=== PATIENT | male | born 1950 | race Caucasian/White ===

== ENCOUNTER 2018-01-08 17:15 | Observation (INO) | payer OTHER ==
--- NOTE | 2018-01-08 17:39 | PDOC ---
Rapid Medical Evaluation Chief Complaint: Edema Time Seen by Provider: 01/08/18 17:36 Medical Evaluation: Allergies Allergy/AdvReac Type Severity Reaction Status Date / Time No Known Allergies Allergy Verified 04/26/11 10:06 01/08/18 17:37 CC: +DVT confirmed today via US HPI: Pt is a 67 M who has a +DVT confirmed by US. Pt has disk and report. Pt denies pleuritic pain, denies SOB. I have performed a brief in- person evaluation of this patient. Pertinent Physical Findings: Skin: Clear Lungs: Clear Heart: RRR Neuro: Alert Psych: Appropriate affect I have ordered: Basic labs ordered The patient will proceed to: Main ED Discharge Disposition - Diagnosis Deep vein thrombophlebitis of leg Qualifiers: Laterality: right Qualified Code(s): I80.201 - Phlebitis and thrombophlebitis of unspecified deep vessels of right lower extremity - Referrals - Patient Instructions - Post Discharge Activity
[2018-01-08 18:12] LABS: HEMOGLOBIN 14.5 GM/dL (11.7-16.9); MCH 30.6 pg (25.7-33.7); MCHC 33.6 g/dl (32.0-35.9); MEAN CELL VOLUME 91.1 fl (80-96); MEAN PLT VOLUME 6.9 fl (7.5-11.1); PLATELET COUNT 191 K/MM3 (134-434); RBC 4.72 M/mm3 (4.00-5.60); RDW 13.5 % (11.9-15.9); WHITE BLOOD COUNT 7.7 K/mm3 (4.0-10.0)
[2018-01-08 18:40] LABS: INR 0.9 (0.83-1.09); PROTHROMBIN TIME (PATIENT) 10.6 SEC (9.7-13.0)
[2018-01-08 18:44] LABS: ALBUMIN 3.9 g/dl (3.4-5.0); ALK PHOS 108 U/L (45-117); ANION GAP 6 MMOL/L (8-16); BILIRUBIN,TOTAL 0.7 mg/dL (0.2-1); BLOOD UREA NITROGEN 25 mg/dL (7-18); CHLORIDE 108 mmol/L (98-107); CO2 25 mmol/L (21-32); CREATININE 1.1 mg/dL (0.55-1.3); GLUCOSE,RANDOM 140 mg/dL (74-106); POTASSIUM 3.8 mmol/L (3.5-5.1); SGOT/AST 27 U/L (15-37); SGPT/ALT 36 U/L (13-61); SODIUM 138 mmol/L (136-145); TOT PROT 7.3 g/dl (6.4-8.2)
--- NOTE | 2018-01-08 19:01 | PDOC ---
History of Present Illness - General Chief Complaint: Edema Stated Complaint: PCP SENT/RT CALF PAIN Time Seen by Provider: 01/08/18 17:36 History Source: Patient Exam Limitations: No Limitations - History of Present Illness Initial Comments: 01/08/18 20:30 Pt is a 67yo m with PMH of HTN, HLD sent to ED by PCP for DVT. Pt had a DVT study done earlier today at [facility]. Results were occlusion of R femoral, popliteal, and tibial veins. R common femoral and greater saphenous are patent. He admits to R leg swelling for the past couple of days and slight calf tenderness. Pt went to [place] in September. He denies recent surgeries, trauma, history of clots, chest pain, shortness of breath, lightheadedness, dizziness, abdominal pain, numbness/tingling. No history of GI bleeds. He is taking a baby aspirin. PCP: Dago Meds: ASA, choleterol, blood pressure Allergies: ndka Social: denies Past History - Past Medical History Allergies/Adverse Reactions: Allergies Allergy/AdvReac Type Severity Reaction Status Date / Time No Known Allergies Allergy Verified 01/08/18 17:37 Home Medications: Ambulatory Orders Aspirin 81 mg PO DAILY 04/26/11 Hyzaar 100-25 Tablet PO DAILY 04/26/11 Simvastatin PO DAILY 04/26/11 Metoprolol Tartrate PO DAILY 04/29/11 Anemia: No Asthma: No Cancer: No Cardiac Disorders: No CVA: No COPD: No CHF: No Dementia: No Diabetes: No GI Disorders: No Disorders: No HTN: Yes Hypercholesterolemia: Yes Liver Disease: No Seizures: No Thyroid Disease: No - Surgical History Abdominal Surgery: No Appendectomy: No Cardiac Surgery: No Cholecystectomy: No Lung Surgery: No Neurologic Surgery: No Orthopedic Surgery: Yes (LEFT ANKLE SURGERY) - Immunization History Immunization Up to Date: Yes - Suicide/Smoking/Psychosocial Hx Smoking History: Never smoked Information on smoking cessation initiated: No Hx Alcohol Use: No Drug/Substance Use Hx: No Substance Use Type: Alcohol Hx Substance Use Treatment: No Review of Systems - Review of Systems Constitutional: No: Chills, Fever, Weakness HEENTM: No: Recent change in vision, Throat Pain Respiratory: No: Cough, Shortness of Breath, Wheezing, Hemoptysis Cardiac (ROS): No: Chest Pain, Lightheadedness, Palpitations, Syncope ABD/GI: No: Constipated, Diarrhea, Nausea, Rectal Bleeding, Vomiting, Abdominal cramping, Tarry Stools : No: Burning, Dysuria, Hematuria Musculoskeletal: No: Back Pain, Joint Pain, Muscle Pain, Neck Pain Integumentary: No: Bruising Neurological: No: Headache, Numbness, Tingling, Weakness Hematologic/Lymphatic: Yes: Blood Clots (today. no history of clots). No: Anemia, Bleeding Diathesis *Physical Exam - Vital Signs Last Vital Signs Temp Pulse Resp BP Pulse Ox 98.8 F 74 16 143/85 97 01/08/18 17:37 01/08/18 17:37 01/08/18 17:37 01/08/18 17:37 01/08/18 17:37 - Physical Exam Comments: 01/08/18 21:11 Pt sitting comfortably in chair General Appearance: Yes: Nourished, Appropriately Dressed. No: Apparent Distress HEENT: positive: EOMI, ABE, Pharynx Normal. negative: Pale Conjunctivae Neck: positive: Trachea midline, Supple. negative: Carotid bruit, Lymphadenopathy (R), Lymphadenopathy (L) Respiratory/Chest: positive: Lungs Clear, Normal Breath Sounds. negative: Crackles, Rhonchi, Stridor, Wheezing Cardiovascular: positive: Regular Rhythm, Regular Rate, S1, S2. negative: Edema , JVD, Murmur, Systolic Murmur Vascular Pulses: Carotid (R): 2+, Carotid (L): 2+, Dorsalis-Pedis (R): 2+, Doralis-Pedis (L): 2+ Gastrointestinal/Abdominal: positive: Normal Bowel Sounds, Soft. negative: Distended, Guarding, Rebound, Tenderness Musculoskeletal: negative: CVA Tenderness (R), CVA Tenderness (L) Extremity: positive: Normal Capillary Refill, Swelling (R calf edema. tender to palpation posteriorly. No bruising), Calf Tenderness (R calf tenderness). negative: Coldness, Cyanosis Integumentary: positive: Normal Color, Dry, Warm Neurologic: positive: computer aided design drafter II-XII NML intact, Fully Oriented, Alert, Normal Mood/ Affect, Normal Response, Motor Strength 5/5 Deep Tendon Reflexes: Ankle (L): 2+, Ankle (R): 2+, Knee (L): 2+, Knee (R): 2+ ED Treatment Course - LABORATORY CBC & Chemistry Diagram: 01/08/18 18:00 01/08/18 18:00 - ADDITIONAL ORDERS Additional order review: Laboratory Results 01/08/18 01/08/18 01/08/18 18:00 18:00 18:00 PT with INR 10.60 INR 0.90 PTT (Actin FS) 30.6 Sodium 138 Potassium 3.8 Chloride 108 H Carbon Dioxide 25 Anion Gap 6 L BUN 25 H Creatinine 1.1 Creat Clearance w eGFR > 60 Random Glucose 140 H Calcium 9.0 Total Bilirubin 0.7 AST 27 ALT 36 Alkaline Phosphatase 108 Total Protein 7.3 Albumin 3.9 01/08/18 18:00 RBC 4.72 MCV 91.1 MCHC 33.6 RDW 13.5 MPV 6.9 L Medical Decision Making - Medical Decision Making 01/08/18 19:00 67yo M with pmh of htn, hld sent to ED by PCP for further management of DVT. Vitals: wnl PE: R calf swelling, edema and calf tenderness. Rest of exam is benign. [facility] on 01/[address] Loza Occlusive thrombus disends the r femoral vv, poplitieal v and posterior tibial. Patent r common femoral, r greater saphenous and common femoral L common fem v demonstrates antegrade flow with respiratory variation Labs ordered by RME: cbc, cmp, pt/inr, aptt EKG added. Pt not complaining of chest pain, SOB, dizziness, lightheadedness. Pt is not tachycardic, not tachypneic, saturating well on RA and normotensive. Will defer CTA at this time. 01/08/18 20:39 EKG: nsr 1st degree AV block. No prior to compare it to. Microblogged hospitalist to see if pt is candidate for outpatient treatment. Pt sitting comfortably in chair and ambulatory. Not having any complaints. Due to protocol, pt's DVT is extensive. Will be given Lovenox sq in ED and be admitted to hospitalist for further management Pt admitted to Dr. Naidu 01/08/18 23:30 *DC/Admit/Observation/Transfer Diagnosis at time of Disposition: DVT (deep venous thrombosis) Qualifiers: DVT location: lower extremity Affected thrombotic vein of extremity: femoral Chronicity: acute Laterality: right Qualified Code(s): I82.411 - Acute embolism and thrombosis of right femoral vein - Discharge Dispostion Condition at time of disposition: Stable Decision to Admit order: Yes - Referrals - Patient Instructions - Post Discharge Activity
--- NOTE | 2018-01-08 20:48 | PDOC ---
Attending Attestation - Resident Resident Name: Luba Dickens - ED Attending Attestation I have performed the following: I have examined & evaluated the patient, The case was reviewed & discussed with the resident, I agree w/resident's findings & plan - HPI HPI: 01/08/18 20:47 67-year-old male with history of hypertension and high cholesterol and sent by PCP after he was diagnosed with a right lower extremity DVT on ultrasound performed today. Patient has noted swelling to the right leg over the last few days, no precipitating factors on history. No history of DVT, no cardiopulmonary complaints whatsoever. - Physicial Exam PE: 01/08/18 20:47 Vitals are within normal limits Positive right leg swelling with some discomfort to palpation 2+ distal pulses, no discoloration or cellulitis - Medical Decision Making 01/08/18 20:48 67-year-old male with unprompted right lower extremity DVT, no symptoms of PE. Exam is otherwise normal with normal vital signs. Labs are within normal limits, ultrasound results reviewed We'll determine eligibility for outpatient treatment, discuss with PCP, and disposition accordingly
[2018-01-08] MEDS ORDERED: ENOXAPARIN NA (PORCINE) 80 MG/0.8 ML DISP.SYRIN SQ ONE ×2 (20:57→21:16)
--- NOTE | 2018-01-08 22:06 | PN ---
Teaching Attending Note Name of Resident: Chapin Crabtree ATTENDING PHYSICIAN STATEMENT I saw and evaluated the patient. I reviewed the resident's note and discussed the case with the resident. I agree with the resident's findings and plan as documented. SUBJECTIVE: Patient is a 67 year old man with PMH of HTN, HLD sent to ER by PCP for DVT. He had a DVT study done earlier today at [facility]. Results were occlusion of R femoral, popliteal, and tibial veins. R common femoral and greater saphenous are patent. He admits to R leg swelling for the past couple of days and slight calf tenderness. He went to [place] in September. He denies recent surgeries, trauma, history of clots, chest pain, shortness of breath, lightheadedness, dizziness, abdominal pain, numbness/tingling. No history of GI bleeds. He is taking a baby aspirin. OBJECTIVE: Alert Vital Signs Period Temp Pulse Resp BP Sys/Cochran Pulse Ox Last 24 Hr 98.8 F 74 16 143/85 97 HEENT: No Jaundice, eye redness or discharge, PERRLA, EOMI. Normocephalic, atraumatic. External ears are normal and hearing is grossly intact. No nasal discharge. Neck: Supple, nontender. No palpable adenopathy or thyromegaly. No JVD Chest: Good effort. Clear to auscultation and percussion. Heart: Regular. No S3, rub or murmur Abdomen: Not distended, soft, nontender and no HSM. No rebound or guarding. Normoactive bowel sounds. Ext: Peripheral pulses intact. Right leg edema and calf tenderness. Skin: Warm and dry. No petechiae, rash or ecchymosis. Neuro: Alert. Oriented x3. CN 2-12 grossly intact. Sensation grossly intact in all four extremities and DTR are symmetric. Home Medications Medication Instructions Recorded Aspirin 81 mg PO DAILY 04/26/11 Hyzaar 100-25 Tablet PO DAILY 04/26/11 Simvastatin PO DAILY 04/26/11 Metoprolol Tartrate PO DAILY 04/29/11 Abnormal Lab Results 01/08/18 01/08/18 18:00 18:00 MPV 6.9 L Chloride 108 H Anion Gap 6 L BUN 25 H Random Glucose 140 H ASSESSMENT AND PLAN: 1. Right femoral/popliteal/tibial DVT - Unprovoked DVT! Started on full dose Lovenox in the ER. Will switch to DOAC tomorrow and DC home. Needs outpatient workup for occult malignancy. 2. DVT prophylaxis - On full dose lovenox. 3. Advance directives - Full code
--- NOTE | 2018-01-09 00:32 | HP ---
CHIEF COMPLAINT: RLE DVT PCP: Dr. Loza HISTORY OF PRESENT ILLNESS: 67M w/ pmhx of HTN and HLD was sent to the hospital by his PCP, Dr. Loza, for treatment of his RLE DVT. Pt states that about a couple of days ago he started experiencing R lower leg pain localized to the calf. He noticed that it was swollen in the morning, with redness and warmth compared to the L leg. Pt states that had an U/S done at [facility] today. Report provided by pt showed occlusion of R femoral, popliteal, tibial veins; R common , greater saphenous veins patent. His PCP, Dr. Loza, subsequently recommended him to go to the hospital for treatment. ER course was notable for: (1) BP 145/85, Cl 108, BUN 25 (2) Lovenox 80 mg SQ given (3) Recent Travel: Traveled to [place] 09/22 for 1 month PAST MEDICAL HISTORY: HTN HLD PAST SURGICAL HISTORY: L ankle surgery 10 years ago Social History: Smoking: Denies Alcohol: Socially, 2-3 drinks/weekend Drugs: Denies Family History: Father: Lung cx Mother: Heart disease Allergies No Known Allergies Allergy (Verified 01/08/18 17:37) HOME MEDICATIONS: Home Medications Medication Instructions Recorded Aspirin 81 mg PO DAILY 04/26/11 Hyzaar 100-25 Tablet PO DAILY 04/26/11 Simvastatin PO DAILY 04/26/11 Metoprolol Tartrate PO DAILY 04/29/11 REVIEW OF SYSTEMS CONSTITUTIONAL: Absent: fever, chills, diaphoresis, generalized weakness, malaise, loss of appetite, weight change HEENT: Absent: rhinorrhea, nasal congestion, throat pain, throat swelling, difficulty swallowing, mouth swelling, ear pain, eye pain, visual changes CARDIOVASCULAR: Absent: chest pain, syncope, palpitations, irregular heart rate, lightheadedness , peripheral edema RESPIRATORY: Absent: cough, shortness of breath, dyspnea with exertion, orthopnea, wheezing, stridor, hemoptysis GASTROINTESTINAL: Absent: abdominal pain, abdominal distension, nausea, vomiting, diarrhea, constipation, melena, hematochezia GENITOURINARY: Absent: dysuria, frequency, urgency, hesitancy, hematuria, flank pain, genital pain MUSCULOSKELETAL: R calf swelling Absent: myalgia, arthralgia, joint swelling, back pain, neck pain SKIN: Absent: rash, itching, pallor HEMATOLOGIC/IMMUNOLOGIC: Absent: easy bleeding, easy bruising, lymphadenopathy, frequent infections ENDOCRINE: Absent: unexplained weight gain, unexplained weight loss, heat intolerance, cold intolerance NEUROLOGIC: Absent: headache, focal weakness or paresthesias, dizziness, unsteady gait, seizure, mental status changes, bladder or bowel incontinence PSYCHIATRIC: Absent: anxiety, depression, suicidal or homicidal ideation, hallucinations. PHYSICAL EXAMINATION Vital Signs - 24 hr 01/08/18 01/09/18 17:37 00:00 Temperature 98.8 F Pulse Rate 74 Pulse Rate [ 70 Right] Respiratory 16 20 Rate Blood Pressure 143/85 Blood Pressure 122/85 [Left Arm] O2 Sat by Pulse 97 98 Oximetry (%) GENERAL: AAOx3. NAD. Resting comfortably. HEENT: AT/NC. EOMI. RYLEY. Moist mucus membranes. NECK: Supple, no LAD/JVD. LUNGS: CTA B/L. No w/r/r noted. Symmetric chest rise. No accessory muscle use. HEART: RRR. Normal S1, S2. No murmurs noted. ABDOMEN: Soft, NT/ND. +BS in all 4 Q's. No masses or bruits noted. MUSCULOSKELETAL: No pedal edema. 5/5 muscle strength in b/l u/l extremities. RLE tenderness, erythema and warmth noted. 2+ dorsalis pedal pulses b/l. NEUROLOGICAL: Normal speech. CN II-XII intact. PSYCHIATRIC: Cooperative. Good eye contact. Appropriate mood and affect. SKIN: Warm, dry, normal turgor, normal capillary refill. Laboratory Results - last 24 hr 01/08/18 01/08/18 01/08/18 18:00 18:00 18:00 WBC 7.7 RBC 4.72 Hgb 14.5 Hct 43.0 MCV 91.1 MCH 30.6 MCHC 33.6 RDW 13.5 Plt Count 191 MPV 6.9 L PT with INR INR PTT (Actin FS) 30.6 Sodium 138 Potassium 3.8 Chloride 108 H Carbon Dioxide 25 Anion Gap 6 L BUN 25 H Creatinine 1.1 Creat Clearance w eGFR > 60 Random Glucose 140 H Calcium 9.0 Total Bilirubin 0.7 AST 27 ALT 36 Alkaline Phosphatase 108 Total Protein 7.3 Albumin 3.9 01/08/18 18:00 WBC RBC Hgb Hct MCV MCH MCHC RDW Plt Count MPV PT with INR 10.60 INR 0.90 PTT (Actin FS) Sodium Potassium Chloride Carbon Dioxide Anion Gap BUN Creatinine Creat Clearance w eGFR Random Glucose Calcium Total Bilirubin AST ALT Alkaline Phosphatase Total Protein Albumin ASSESSMENT/PLAN: 67M w/ pmhx of HTN, HLD who presents to the hospital with RLE DVT. #RLE DVT; Unprovoked. -Lovenox 80 mg SQ QD -Consider switching to PO upon discharge -Will need outpatient follow up with PCP #HTN; BP 14/85. -resume home med Metoprolol Tartrate 25 mg PO QD (verify dose) -resume home med Hyzaar 1 tab PO QD #HLD -resume home med Simvastatin 40 mg PO QD #DVT Ppx -Lovenox 80 mg SQ QD #FEN -IVfs -recheck lytes in AM -Fat/Sodium controlled diet dispo -admit to obs -needs med rec Visit type - Emergency Visit Emergency Visit: Yes ED Registration Date: 01/08/18 Care time: The patient presented to the Emergency Department on the above date and was hospitalized for further evaluation of their emergent condition. - New Patient This patient is new to me today: Yes Date on this admission: 01/10/18 - Critical Care Critical Care patient: No
[2018-01-09 00:57] VITALS: BMI 27.3
[2018-01-09 07:29] LABS: HEMOGLOBIN 14.7 GM/dL (11.7-16.9); MCHC 34.1 g/dl (32.0-35.9); MEAN CELL VOLUME 90.9 fl (80-96); PLATELET COUNT 177 K/MM3 (134-434); RBC 4.73 M/mm3 (4.00-5.60); RDW 13.4 % (11.9-15.9); WHITE BLOOD COUNT 6.6 K/mm3 (4.0-10.0)
[2018-01-09 08:03] LABS: ANION GAP 6 MMOL/L (8-16); BLOOD UREA NITROGEN 26 mg/dL (7-18); CALCIUM 9.1 mg/dL (8.5-10.1); CHLORIDE 105 mmol/L (98-107); CO2 28 mmol/L (21-32); GLUCOSE,RANDOM 100 mg/dL (74-106); POTASSIUM 3.6 mmol/L (3.5-5.1); SODIUM 139 mmol/L (136-145)
[2018-01-09] MEDS ORDERED: PT OWN MED DRAWER 7, Y5N ONE (09:20)
--- NOTE | 2018-01-09 09:20 | EKG ---
Test Reason : Blood Pressure : / mmHG Vent. Rate : 060 BPM Atrial Rate : 060 BPM P-R Int : 246 ms QRS Dur : 088 ms QT Int : 438 ms P-R-T Axes : 058 -36 020 degrees QTc Int : 438 ms SINUS RHYTHM WITH 1ST DEGREE A-V BLOCK LEFT AXIS DEVIATION ABNORMAL ECG Confirmed by KARTIK MARTINEZ MD ([id number]) on 01/09/2018 9:20:07 AM Referred By: Confirmed By:KARTIK MARTINEZ MD
--- NOTE | 2018-01-09 09:33 | PN ---
Physical Exam: SUBJECTIVE: Patient seen and examined at bedside this morning. He admits some pain and parasthesias in right lower extremity, non radiating. Patient is able to bear weight onto affected leg. denies fevers, chills, chest pain, palpitations, shortness of breath, cough, nausea, vomiting, diarrhea. OBJECTIVE: Vital Signs Period Temp Pulse Resp BP Sys/Cochran Pulse Ox Last 24 Hr 97.5 F-98.8 F 60-74 16-20 111-143/64-85 97-98 GENERAL: The patient is awake, alert, and fully oriented, in no acute distress. HEAD: Normal with no signs of trauma. EYES: PERRL, extraocular movements intact, sclera anicteric, conjunctiva clear b /l. ENT: Oropharynx clear without exudates, erythema, lesions. Moist mucous membranes. NECK: Trachea midline, full range of motion, supple without lymphadenopathy LUNGS: Good inspiratory effort, with air entry b/l. Breath sounds equal, clear to auscultation bilaterally, no wheezes, no crackles. No accessory muscle use. HEART: Regular rate and rhythm, S1, S2 without murmur, rub or gallop. ABDOMEN: Soft, nontender, nondistended, normoactive bowel sounds, no guarding, no rebound tenderness, no hepatosplenomegaly. EXTREMITIES: 2+ radial and dorsalis pedis pulses b/l. Right leg more swollen and erythematous than left. Tender to palpation at left distal calf, superior to achilles tendon. NEUROLOGICAL: Cranial nerves II through XII grossly intact. Normal speech, and gait. Strength 5/5 b/l upper and lower extremities b/l. PSYCH: Normal mood, normal affect upon my encounter today. SKIN: Warm, dry, no lesions noted. Laboratory Results - last 24 hr 01/08/18 01/08/18 01/08/18 18:00 18:00 18:00 WBC 7.7 RBC 4.72 Hgb 14.5 Hct 43.0 MCV 91.1 MCH 30.6 MCHC 33.6 RDW 13.5 Plt Count 191 MPV 6.9 L PT with INR INR PTT (Actin FS) 30.6 Sodium 138 Potassium 3.8 Chloride 108 H Carbon Dioxide 25 Anion Gap 6 L BUN 25 H Creatinine 1.1 Creat Clearance w eGFR > 60 Random Glucose 140 H Calcium 9.0 Total Bilirubin 0.7 AST 27 ALT 36 Alkaline Phosphatase 108 Total Protein 7.3 Albumin 3.9 01/08/18 01/09/18 01/09/18 18:00 06:30 06:30 WBC 6.6 RBC 4.73 Hgb 14.7 Hct 43.0 MCV 90.9 MCH 31.0 MCHC 34.1 RDW 13.4 Plt Count 177 MPV 7.0 L PT with INR 10.60 INR 0.90 PTT (Actin FS) 35.8 Sodium Potassium Chloride Carbon Dioxide Anion Gap BUN Creatinine Creat Clearance w eGFR Random Glucose Calcium Total Bilirubin AST ALT Alkaline Phosphatase Total Protein Albumin 01/09/18 06:30 WBC RBC Hgb Hct MCV MCH MCHC RDW Plt Count MPV PT with INR INR PTT (Actin FS) Sodium 139 Potassium 3.6 Chloride 105 Carbon Dioxide 28 Anion Gap 6 L BUN 26 H Creatinine 1.0 Creat Clearance w eGFR > 60 Random Glucose 100 Calcium 9.1 Total Bilirubin AST ALT Alkaline Phosphatase Total Protein Albumin Active Medications Generic Name Dose Route Start Last Admin Trade Name Freq PRN Reason Stop Dose Admin Aspirin 81 mg 01/09/18 10:00 Asa - PO DAILY [facility] Atorvastatin Calcium 20 mg 01/09/18 22:00 Lipitor - PO HS EL Enoxaparin Sodium 80 mg 01/09/18 10:00 Lovenox - SQ BID EL HCTZ/Losartan Potassium 1 tab 01/09/18 10:00 Hyzaar - PO DAILY [facility] Metoprolol Tartrate 25 mg 01/09/18 10:00 Lopressor - PO DAILY [facility] ASSESSMENT/PLAN:
[2018-01-09] MEDS ORDERED: ENOXAPARIN NA (PORCINE) 80 MG/0.8 ML DISP.SYRIN SQ SCH (10:00)
[2018-01-09] MEDS ORDERED: ASPIRIN 81 MG CHEWABLE TABLETS PO SCH (10:00)
[2018-01-09] MEDS ORDERED: LOSARTAN 50MG/HCTZ 12.5MG 1 TAB (FP) PO SCH (10:00)
[2018-01-09] MEDS ORDERED: ENOXAPARIN NA (PORCINE) 40 MG/0.4 ML DISP.SYRIN SQ SCH (10:00)
[2018-01-09] MEDS ORDERED: METOPROLOL TARTRATE 25 MG TABLET (FP) PO SCH (10:00)
[2018-01-09 15:25] VITALS: BP 130/87; PULSE 71; TEMP 97.6
--- NOTE | 2018-01-09 16:09 | PN ---
Teaching Attending Note Name of Resident: Buster Cartagena ATTENDING PHYSICIAN STATEMENT I saw and evaluated the patient. I reviewed the resident's note and discussed the case with the resident. I agree with the resident's findings and plan as documented. SUBJECTIVE: No fever or chills. No abd pain, has minimal discomfort in R leg . no SOB or CP , or palpitations OBJECTIVE: NAD Cv: RRR Lungs: CTAB. EXt : R leg circumference > L. slight TTP over R calf. increased warmth over R leg ASSESSMENT AND PLAN: 67 y/o man with h/o HTN, and hyperlipidemia who presented with DVT diagnosed as out pt. 1- RLE DVT: unprovoked. -out patient US report reviewed.occlusive DVT of femoral, popliteal and tibial veins. - minimal pain and swelling . No indication for thrombectomy unless swelling worsens - risk of PE with no AC, and risk of bleed with AC were explained. pt elected AC - his options ( NOACS, coumadin , LMWH ) were d/w him, he chose NOACS and understand the risk of spinal bleed. - start xarelto 15 bid x 21 days then 20 mg daily - f/u with Heme for hypercoagulable w/u and determination on duration - f/u with vascular - asked to hold home asa as he takes it prophylactically. No h/o CAD or stents 2- HTN, and HLP : cont home meds
--- NOTE | 2018-01-09 16:22 | DS ---
Physical Exam: SUBJECTIVE: Patient seen and examined at bedside this morning. He admits some pain and parasthesias in right lower extremity, non radiating. Patient is able to bear weight onto affected leg. denies fevers, chills, chest pain, palpitations, shortness of breath, cough, nausea, vomiting, diarrhea. OBJECTIVE: Vital Signs Period Temp Pulse Resp BP Sys/Cochran Pulse Ox Last 24 Hr 97.4 F-98.8 F 60-84 16-20 111-143/64-87 97-98 PHYSICAL EXAM GENERAL: The patient is awake, alert, and fully oriented, in no acute distress. HEAD: Normal with no signs of trauma. EYES: PERRL, extraocular movements intact, sclera anicteric, conjunctiva clear b /l. ENT: Oropharynx clear without exudates, erythema, lesions. Moist mucous membranes. NECK: Trachea midline, full range of motion, supple without lymphadenopathy LUNGS: Good inspiratory effort, with air entry b/l. Breath sounds equal, clear to auscultation bilaterally, no wheezes, no crackles. No accessory muscle use. HEART: Regular rate and rhythm, S1, S2 without murmur, rub or gallop. ABDOMEN: Soft, nontender, nondistended, normoactive bowel sounds, no guarding, no rebound tenderness, no hepatosplenomegaly. EXTREMITIES: 2+ radial and dorsalis pedis pulses b/l. Right leg more swollen and erythematous than left. Tender to palpation at left distal calf, superior to achilles tendon. NEUROLOGICAL: Cranial nerves II through XII grossly intact. Normal speech, and gait. Strength 5/5 b/l upper and lower extremities b/l. PSYCH: Normal mood, normal affect upon my encounter today. SKIN: Warm, dry, no lesions noted. LABS Laboratory Results - last 24 hr 01/08/18 01/08/18 01/08/18 18:00 18:00 18:00 WBC 7.7 RBC 4.72 Hgb 14.5 Hct 43.0 MCV 91.1 MCH 30.6 MCHC 33.6 RDW 13.5 Plt Count 191 MPV 6.9 L PT with INR INR PTT (Actin FS) 30.6 Sodium 138 Potassium 3.8 Chloride 108 H Carbon Dioxide 25 Anion Gap 6 L BUN 25 H Creatinine 1.1 Creat Clearance w eGFR > 60 Random Glucose 140 H Calcium 9.0 Total Bilirubin 0.7 AST 27 ALT 36 Alkaline Phosphatase 108 Total Protein 7.3 Albumin 3.9 01/08/18 01/09/18 01/09/18 18:00 06:30 06:30 WBC 6.6 RBC 4.73 Hgb 14.7 Hct 43.0 MCV 90.9 MCH 31.0 MCHC 34.1 RDW 13.4 Plt Count 177 MPV 7.0 L PT with INR 10.60 INR 0.90 PTT (Actin FS) 35.8 Sodium Potassium Chloride Carbon Dioxide Anion Gap BUN Creatinine Creat Clearance w eGFR Random Glucose Calcium Total Bilirubin AST ALT Alkaline Phosphatase Total Protein Albumin 01/09/18 06:30 WBC RBC Hgb Hct MCV MCH MCHC RDW Plt Count MPV PT with INR INR PTT (Actin FS) Sodium 139 Potassium 3.6 Chloride 105 Carbon Dioxide 28 Anion Gap 6 L BUN 26 H Creatinine 1.0 Creat Clearance w eGFR > 60 Random Glucose 100 Calcium 9.1 Total Bilirubin AST ALT Alkaline Phosphatase Total Protein Albumin HOSPITAL COURSE: Date of Admission:01/08/18 Date of Discharge: 01/09/18 Patient is a 67 year old male with history of hypertension and hyperlipidemia presents to hospital with report of DVT in right lower extremity. DVT was unprovoked. Started on Lovenox 80mg subq. Home hypertension medications resumed. Home aspirin was discontinued. He was discharged with Xarelto 15mg BID for 21 days, and then to continue 20mg daily 9to be prescribed by primary care physician). Informed of increased risk of bleeding with Xarelto. Informed of requirement of regular blood draws. Discharged with instruction to follow up with primary care physician, and subeditor within one week of discharge. Advised to visit vascular surgeon if continued worsening of leg swelling, referral provided to patient. Patient informed to return to ED if any bleeding, shortness of breath, lightheadedness, chest pain, palpitations, worsening leg pain or weakness, any falls, or loss of consciousness. Minutes to complete discharge: 35 Discharge Summary Reason For Visit: DEEP VEIN THROMBOSIS (DVT) Condition: Stable - Instructions Diet, Activity, Other Instructions: You were admitted with a blood clot in your right leg (Deep Venous Thrombosis) You will need to take blood thinner Xarelto to prevent the clot from expanding, or spreading to other parts of the body. You will take Xarelto 15mg every 12 hours with food, for the next 21 days. Your first dose is tonight at 9:30 PM today. After those 21 days, you will continue taking the Xarelto at 20mg once daily. This will be prescribed by your primary care doctor at your follow-up appointment. Make sure to take the medicine every day, and do not miss any dose. This medication can increase risk of bleeding, so exercise caution with sharp objects , machinery, or any physical labor. If any bleeding, from the mouth, in urine, in stool or black stools, please return immediately to the nearest emergency room. We are therefore stopping your aspirin. Do NOT take Aspirin medicine anymore as it may cause increased risk of bleeding with Xarelto. You will also need to follow up with the subeditor (blood doctor- Dr. Baron) to further work up the cause of the blood clot, and follow up. Continue taking your home medications (losartan, metoprolol, and simvastatin) as directed. You will need regular blood draws to make sure you are not anemic or loosing blood. Follow up with your primary care doctor (Dago Traore) in a week's time at which time you may get blood draws Please return to the hospital if you experience any shortness of breath, lightheadedness, chest pain, palpitations, worsening leg pain or weakness, any bleeding, falls, loss of consciousness. If you experience worsening leg swelling or pain, please follow up with Vascular surgeon. A referral to Dr. Chase has been made for you. Referrals: Sukhwinder Chase MD [Non Staff, Medical] - Medhat Baron MD [Staff Physician] - 1 Week Benji Loza [Primary Care Provider] - 1 Week Disposition: HOME - Home Medications Comprehensive Discharge Medication List: Ambulatory Orders Aspirin 81 mg PO DAILY 04/26/11 Simvastatin 40 mg PO DAILY 04/26/11 Metoprolol Tartrate 25 mg PO DAILY 04/29/11 Losartan/Hydrochlorothiazide [Hyzaar 50-12.5 Tablet] 1 tablet PO DAILY 01/09/18 Rivaroxaban [Xarelto] 15 mg PO BID 21 Days #42 tab.ds.[email or web address] 01/09/18 This patient is new to me today: Yes Date on this admission: 01/09/18 Emergency Visit: Yes ED Registration Date: 01/08/18 Care time: The patient presented to the Emergency Department on the above date and was hospitalized for further evaluation of their emergent condition. Critical Care patient: No - Discharge Referral Referred to [facility] No
[2018-01-09] MEDS ORDERED: ATORVASTATIN CA 20 MG TABLET (FP) PO SCH (22:00)
== END 2018-01-09 15:48 | disposition home or self-care (01) ==
LOC: JER 17:15 → JERBED 21:55 → J5S 01-09 00:43
PROVIDERS: ADMIT Internal Medicine; ATTEND Internal Medicine
PROC: 3E013GC Introduction of Other Therapeutic Substance into Subcutaneous Tissue, Percutaneous Approach (ICD-10-PCS; principal; 2018-01-08)
DX: I82.411 Acute embolism and thrombosis of right femoral vein (principal); I10 Essential (primary) hypertension; E78.5 Hyperlipidemia, unspecified; I44.0 Atrioventricular block, first degree
CPT/HCPCS: 36415; 80048; 80053; 85027; 85610; 85730; 93005; 93010; 99285-25; G0378

== ENCOUNTER 2022-10-16 08:00 | Day surgery (SDC) | payer OTHER ==
[2022-10-15 12:13] VITALS: BMI 29.5
[2022-10-16] MEDS ORDERED: LIDOCAINE HCL/PF 2% SDV 5ML VIAL ONE (08:10)
[2022-10-16] MEDS ORDERED: PROPOFOL 120 ML ONE (08:10)
[2022-10-16] MEDS ORDERED: PROPOFOL 80 ML ONE (08:24)
[2022-10-16 09:18] VITALS: TEMP 98
[2022-10-16 09:26] VITALS: BP 112/62; PULSE 60; RESP 20
== END 2022-10-16 09:35 | disposition home or self-care (01) ==
LOC: FASU-ENDO 08:00
PROVIDERS: ATTEND Internal Medicine Gastroenterology
PROC: 0DJD8ZZ Inspection of Lower Intestinal Tract, Via Natural or Artificial Opening Endoscopic (ICD-10-PCS; principal; 2022-10-16 08:51)
DX: Z12.11 Encounter for screening for malignant neoplasm of colon (principal)